=== PATIENT | male | born 1975 | race African-American/Black ===

== ENCOUNTER 2018-01-06 11:11 | Emergency (ER) | payer MEDICAID ==
[~2018-01-06] VITALS: Ht 195.6 cm; Wt 109.4 kg
[2018-01-06 11:15] VITALS: BP 134/91
== END 2018-01-06 13:32 | disposition home or self-care (01) ==
LOC: ED 12:00
DX: T16.2XXA Foreign body in left ear, initial encounter (principal); X58.XXXA Exposure to other specified factors, initial encounter; Y93.89 Activity, other specified; Y92.89 Other specified places as the place of occurrence of the external cause; Y99.9 Unspecified external cause status
CPT/HCPCS: 69200; 99284

== ENCOUNTER 2021-04-14 23:02 | Emergency (ER) | payer MEDICAID ==
[~2021-04-14] VITALS: Ht 195.6 cm; Wt 103.6 kg
[2021-04-14 23:16] VITALS: BP 133/57
[2021-04-14 23:53] LABS: BASOPHILS % (AUTO) 1 % (0-1); EOSINOPHILS % (AUTO) 1 % (1-7); LYMPHOCYTES % (AUTO) 16 % (22-44); MEAN CORPUSCULAR HGB CONC 33.7 g/dL (33.2-36.2); MEAN PLATELET VOLUME 7.7 fL (7.4-10.4); MONOCYTES % (AUTO) 9 % (2-9); NEUTROPHILS % (AUTO) 74 % (42-75); PLATELET COUNT 163 x10^3/uL (130-400); RED BLOOD COUNT 5.68 x10^6/uL (4.38-5.82); RED CELL DISTRIBUTION WIDTH 12.8 % (9.4-14.8)
[2021-04-14 23:57] LABS: MD NO
[2021-04-15 00:03] LABS: ANION GAP 5 mmol/L (5-15); CHLORIDE 106 mmol/L (98-107); CREATININE 1.41 mg/dL (0.7-1.3)
--- NOTE | 2021-04-15 00:56 | NUR ---
NIL X 1
--- NOTE | 2021-04-15 01:11 | NUR ---
NIL X 2
--- NOTE | 2021-04-15 01:21 | NUR ---
NIL X 3
== END 2021-04-15 01:23 | disposition left against medical advice (07) ==
LOC: ED 04-15 01:20
DX: J02.9 Acute pharyngitis, unspecified (principal); Z91.14 Patient's other noncompliance with medication regimen
CPT/HCPCS: 36415; 80048; 82962; 85025; 87806; 99283; G0475